=== PATIENT | female | born 1950 | race Caucasian/White ===

== ENCOUNTER 2017-10-23 05:49 | Inpatient (IN) ==
[2017-10-23] MEDS ORDERED: ceFAZolin 1,000 MG in SYRINGE 1 EACH IV ONE (06:00)
[2017-10-23] MEDS ORDERED: VANCOMYCIN INJ 1,000 MG in SODIUM CHLORIDE 0.9% 250 ML IV ONE (06:00)
[2017-10-23] MEDS ORDERED: VANCOMYCIN 1,000 MG VIAL ONE (06:30)
[2017-10-23] MEDS ORDERED: ceFAZolin 1,000 MG VIAL ONE (06:30)
[2017-10-23] MEDS ORDERED: BACITRACIN OINT 0.9 GM PACK TOP ONE (06:38)
[2017-10-23] MEDS: LACTATED RINGERS 1,000 ML IV SCH ×2 (06:40→15:01)
[2017-10-23] MEDS ORDERED: TRANEXAMIC ACID 1,000 MG/10 ML VIAL IV ONE (06:46)
[2017-10-23] MEDS ORDERED: ONDANSETRON 4 MG/2 ML VIAL IV PRN (07:16)
[2017-10-23] MEDS ORDERED: ZALEPLON 5 MG CAPSULE PO PRN (07:16)
[2017-10-23] MEDS ORDERED: MAGNESIUM HYDROXIDE SUSP 30 ML UDCUP PO PRN (07:16)
[2017-10-23] MEDS ORDERED: oxyCODONE IR 5 MG TABLET PO PRN (07:16)
[2017-10-23] MEDS ORDERED: MORPHINE 2 MG/1 ML SYRINGE IV PRN ×2 (07:16)
[2017-10-23] MEDS ORDERED: diphenhydrAMINE CAP 25 MG CAPSULE PO PRN (07:16)
[2017-10-23] MEDS ORDERED: ROPIVACAINE 0.5% 30 ML VIAL ONE (08:33)
[2017-10-23] MEDS ORDERED: PROPOFOL 200 MG/20 ML VIAL IV ONE (09:06)
[2017-10-23] MEDS ORDERED: SEVOFLURANE 1 UNIT/15 MINUTE INH ONE (09:06)
[2017-10-23] MEDS ORDERED: SCOPOLAMINE 1.5 MG PATCH TRANSDERM ONE (09:07)
[2017-10-23] MEDS ORDERED: MIDAZOLAM 2 MG/2 ML VIAL ONE (09:07)
[2017-10-23] MEDS ORDERED: PROMETHAZINE 25 MG/1 ML VIAL ONE (09:07)
[2017-10-23] MEDS ORDERED: DEXAMETHASONE 10 MG/1 ML VIAL ONE (09:07)
[2017-10-23] MEDS ORDERED: ePHEDrine 50 MG/ML AMP ONE (09:07)
[2017-10-23] MEDS ORDERED: LACTATED RINGERS 1,000 ML IV ONE (09:08)
[2017-10-23] MEDS ORDERED: ACETAMINOPHEN 1,000 MG/100 ML VIAL IV ONE (09:08)
[2017-10-23] MEDS ORDERED: PHENYLEPHRINE 1 MG/10 ML SYRINGE IV ONE (09:08)
[2017-10-23] MEDS ORDERED: ONDANSETRON 4 MG/2 ML VIAL ONE (09:08)
[2017-10-23] MEDS ORDERED: SODIUM CHLORIDE 0.9% 100 ML IV ONE (09:08)
[2017-10-23] MEDS: DOCUSATE SODIUM 100 MG CAPSULE PO SCH ×2 (10:20→21:42)
[2017-10-23] MEDS: BRIMONIDINE/TIMOLOL OPH SOLN 5 ML BOTTLE BOTH EYES SCH ×2 (10:20→21:41)
[2017-10-23] MEDS: KETOROLAC 30 MG/1 ML VIAL IV SCH ×3 (10:25→23:04)
[2017-10-23] MEDS: ESCITALOPRAM 10 MG TABLET PO SCH (11:07)
[2017-10-23] MEDS: ACETAMINOPHEN 500 MG TABLET PO SCH ×3 (11:16→23:04)
[2017-10-23] MEDS: ceFAZolin 1,000 MG in SYRINGE 1 EACH IV SCH ×2 (11:18→19:52)
[2017-10-23] MEDS: SODIUM BICARBONATE 650 MG TABLET PO SCH ×2 (15:00→21:41)
[2017-10-23] MEDS ORDERED: AMOXAPINE 50 MG PO SCH (21:00)
[2017-10-23] MEDS: LATANOPROST 0.005% OPH SOLN 2.5 ML BOTTLE BOTH EYES SCH (21:41)
[2017-10-23] MEDS: POTASSIUM CHLORIDE 10 MEQ TABLET PO SCH (21:41)
[2017-10-23] MEDS: NORTRIPTYLINE 25 MG CAPSULE PO SCH (21:42)
[2017-10-24] MEDS: LACTATED RINGERS 1,000 ML IV SCH ×3 (00:38→06:31)
[2017-10-24] MEDS: FONDAPARINUX 2.5 MG/0.5 ML SYRINGE SUBCUT SCH (00:38)
[2017-10-24] MEDS: oxyCODONE IR 5 MG TABLET PO PRN ×2 (00:38→17:01)
[2017-10-24] MEDS: KETOROLAC 30 MG/1 ML VIAL IV SCH (05:24)
[2017-10-24] MEDS: ACETAMINOPHEN 500 MG TABLET PO SCH (05:24)
[2017-10-24] MEDS ORDERED: KETOROLAC 30 MG/1 ML VIAL IV SCH (05:30)
[2017-10-24 07:11] LABS: Basophils % 0.1 % (0.0-0.8); Eosinophils % 0.4 % (0.00-10.9); Hematocrit 22.7 VOL% (35.7-47.0); Hemoglobin 7.7 GM/DL (12.0-16.0); Immature Granulocytes % 0.4 %; Immature Granulocytes Absolute 0.04 #; Lymphocytes # 2.2 10*3/uL (1.4-4.0); Lymphocytes % 24.8 % (21.3-54.2); Mean Corpuscular HGB Conc 33.9 GM/DL (32-36); Mean Corpuscular Hemoglobin 28 PG (27-34); Mean Corpuscular Volume 81.9 FL (87-102); Mean Platelet Volume 10.8 FL (9.6-12.0); Monocytes # 1.1 10*3/uL (0.11-0.8); Neutrophils # 5.6 10*3/uL (1.4-7.4); Neutrophils % 62.3 % (38.7-73.9); Platelet Count 417 T/CUMM (130-400); Red Blood Count 2.77 MC/CUMM (3.8-5.5); Red Cell Distribution Width 13.2 % (9.3-17.3)
[2017-10-24 07:36] LABS: Calcium 8.2 MG/DL (8.5-10.1); Osmolality,Calculated 262.5 MOS/KG (273-304); Potassium 4.6 MMOL/L (3.5-5.1)
[2017-10-24] MEDS: BRIMONIDINE/TIMOLOL OPH SOLN 5 ML BOTTLE BOTH EYES SCH ×2 (09:16→21:39)
[2017-10-24] MEDS: DOCUSATE SODIUM 100 MG CAPSULE PO SCH ×2 (09:17→21:40)
[2017-10-24] MEDS: TRIAMTERENE/HCTZ 37.5-25 MG CAPSULE PO SCH (09:17)
[2017-10-24] MEDS: METOPROLOL SUCCINATE XL 25 MG TABLET PO SCH (09:17)
[2017-10-24] MEDS: ESCITALOPRAM 10 MG TABLET PO SCH (09:17)
[2017-10-24] MEDS: POTASSIUM CHLORIDE 10 MEQ TABLET PO SCH ×2 (09:17→21:39)
[2017-10-24] MEDS: SODIUM BICARBONATE 650 MG TABLET PO SCH ×3 (09:17→21:39)
[2017-10-24] MEDS: CELECOXIB 200 MG CAPSULE PO SCH (12:55)
[2017-10-24] MEDS: LATANOPROST 0.005% OPH SOLN 2.5 ML BOTTLE BOTH EYES SCH (21:39)
[2017-10-24] MEDS: NORTRIPTYLINE 25 MG CAPSULE PO SCH (21:39)
[2017-10-25] MEDS: FONDAPARINUX 2.5 MG/0.5 ML SYRINGE SUBCUT SCH (00:38)
[2017-10-25 06:27] LABS: Basophils # 0.1 10*3/uL (0.0-0.2); Basophils % 0.5 % (0.0-0.8); Eosinophils # 0.4 10*3/uL (0.0-0.87); Eosinophils % 4.4 % (0.00-10.9); Hematocrit 22.4 VOL% (35.7-47.0); Hemoglobin 7.1 GM/DL (12.0-16.0); Immature Granulocytes % 0.4 %; Immature Granulocytes Absolute 0.04 #; Lymphocytes % 20.5 % (21.3-54.2); Mean Corpuscular HGB Conc 31.7 GM/DL (32-36); Mean Corpuscular Hemoglobin 27 PG (27-34); Mean Corpuscular Volume 84.2 FL (87-102); Mean Platelet Volume 9.7 FL (9.6-12.0); Monocytes # 1.2 10*3/uL (0.11-0.8); Neutrophils # 5.8 10*3/uL (1.4-7.4); Neutrophils % 61.2 % (38.7-73.9); Platelet Count 389 T/CUMM (130-400); Red Blood Count 2.66 MC/CUMM (3.8-5.5); Red Cell Distribution Width 13.6 % (9.3-17.3); White Blood Count 9.5 T/CUMM (4-12)
[2017-10-25 06:57] LABS: Calcium 8.1 MG/DL (8.5-10.1); Osmolality,Calculated 262.7 MOS/KG (273-304); Potassium 4.4 MMOL/L (3.5-5.1)
[2017-10-25] MEDS ORDERED: IRON (CARBONYL) 45 MG TABLET PO SCH (09:00)
[2017-10-25] MEDS: CELECOXIB 200 MG CAPSULE PO SCH (09:20)
[2017-10-25] MEDS: POTASSIUM CHLORIDE 10 MEQ TABLET PO SCH (09:21)
[2017-10-25] MEDS: SODIUM BICARBONATE 650 MG TABLET PO SCH (09:21)
[2017-10-25] MEDS: DOCUSATE SODIUM 100 MG CAPSULE PO SCH (09:21)
[2017-10-25] MEDS: METOPROLOL SUCCINATE XL 25 MG TABLET PO SCH (09:22)
[2017-10-25] MEDS: ESCITALOPRAM 10 MG TABLET PO SCH (09:22)
[2017-10-25] MEDS: TRIAMTERENE/HCTZ 37.5-25 MG CAPSULE PO SCH (09:22)
[2017-10-25] MEDS: BRIMONIDINE/TIMOLOL OPH SOLN 5 ML BOTTLE BOTH EYES SCH (09:23)
[2017-10-25 10:51] VITALS: BP 105/52
== END 2017-10-25 12:00 | disposition home health service (06) | DRG 470 ==
LOC: N.SDSINP 05:49 → N.3E 08:35
PROVIDERS: ADMIT Orthopaedic Surgery; ATTEND Orthopaedic Surgery

== ENCOUNTER 2018-04-25 04:17 | Inpatient (IN) ==
[2018-04-25 05:47] LABS: Basophils # 0.1 10*3/uL (0.0-0.2); Basophils % 0.3 % (0.0-0.8); Eosinophils # 0.1 10*3/uL (0.0-0.87); Eosinophils % 0.2 % (0.00-10.9); Hemoglobin 13.3 GM/DL (12.0-16.0); Immature Granulocytes % 0.8 %; Immature Granulocytes Absolute 0.17 #; Lymphocytes # 1.6 10*3/uL (1.4-4.0); Lymphocytes % 7.7 % (21.3-54.2); Mean Corpuscular Hemoglobin 30 PG (27-34); Mean Corpuscular Volume 85.4 FL (87-102); Mean Platelet Volume 10.6 FL (9.6-12.0); Monocytes # 1.9 10*3/uL (0.11-0.8); Monocytes % 9.3 % (1.7-12.7); Neutrophils # 16.8 10*3/uL (1.4-7.4); Neutrophils % 81.7 % (38.7-73.9); Platelet Count 545 T/CUMM (130-400); Red Blood Count 4.45 MC/CUMM (3.8-5.5); Red Cell Distribution Width 14.8 % (9.3-17.3); White Blood Count 20.6 T/CUMM (4-12)
[2018-04-25 06:10] LABS: Band Neutrophils 2 % (0-10); Eosinophils 1 % (0-10); Lymphocytes 11 % (20-55); Segmented Neutrophils 82 % (50-85); Total Cells Counted 100
[2018-04-25 06:11] LABS: Microcytosis 1+; Ovalocytes Slight
[2018-04-25 06:12] LABS: Platelet Estimate Increased
[2018-04-25 06:13] LABS: Alanine Aminotransferase 38 U/L (13-56); Alkaline Phosphatase 156 U/L (45-117); Aspartate Amino Transferase 35 U/L (0-37); Blood Urea Nitrogen 18 MG/DL (7-18); Calcium 9.2 MG/DL (8.5-10.1); Glucose 211 MG/DL (74-106); Osmolality,Calculated 269.7 MOS/KG (273-304); Potassium 2.7 MMOL/L (3.5-5.1); Sodium 131 MMOL/L (136-145); Total Protein 8.1 G/DL (6.4-8.3)
[2018-04-25 06:15] LABS: Lactic Acid 4.8 MMOL/L (0.4-2.0)
[2018-04-25 07:10] LABS: Apearance,Urine CLEAR (Clear); Bilirubin,Urine Negative (Negative); Blood, Urine Negative (Negative); Glucose,Urine (UA) Negative (Negative); Hyaline Casts,Urine 2 /LPF (0-3); Ketones,Urine Negative (Negative); Mucus,Urine Occasional /LPF (Occasional); Nitrite,Urine Negative (Negative); Protein,Urine Negative; Squamous Epithelial Cell,Urine Occasional /HPF (0-10); Urine Color Yellow (Yellow); Urine Specific Gravity 1.009 (1.001-1.035); Urine Urobilinogen < 2.0 EU/DL (0.2-1.0); WBC,Urine 5 /HPF (0-6)
[2018-04-25 09:26] LABS: Basophils % 0.2 % (0.0-0.8); Eosinophils % 0.1 % (0.00-10.9); Hematocrit 31.4 VOL% (35.7-47.0); Immature Granulocytes % 0.5 %; Immature Granulocytes Absolute 0.09 #; Lymphocytes # 1.2 10*3/uL (1.4-4.0); Lymphocytes % 7.2 % (21.3-54.2); Mean Corpuscular HGB Conc 34.7 GM/DL (32-36); Mean Corpuscular Hemoglobin 30 PG (27-34); Mean Platelet Volume 10.1 FL (9.6-12.0); Monocytes # 1.7 10*3/uL (0.11-0.8); Monocytes % 10.5 % (1.7-12.7); Neutrophils # 13.4 10*3/uL (1.4-7.4); Neutrophils % 81.5 % (38.7-73.9); Red Blood Count 3.65 MC/CUMM (3.8-5.5); Red Cell Distribution Width 14.7 % (9.3-17.3); White Blood Count 16.5 T/CUMM (4-12)
[2018-04-25 09:30] LABS: Hemoglobin 10.9 GM/DL (12.0-16.0); Platelet Count 411 T/CUMM (130-400)
[2018-04-25 09:39] LABS: Calcium 8.1 MG/DL (8.5-10.1); Osmolality,Calculated 273.1 MOS/KG (273-304); Potassium 2.8 MMOL/L (3.5-5.1)
[2018-04-25 14:47] LABS: Apearance,Urine CLEAR (Clear); Bilirubin,Urine Negative (Negative); Blood, Urine Negative (Negative); Glucose,Urine (UA) Negative (Negative); Hyaline Casts,Urine 1 /LPF (0-3); Ketones,Urine Negative (Negative); Nitrite,Urine Negative (Negative); Protein,Urine Negative; RBC,Urine 2 /HPF (0-4); Urine Color Straw (Yellow); Urine Specific Gravity 1.009 (1.001-1.035); Urine Urobilinogen < 2.0 EU/DL (0.2-1.0); WBC,Urine 2 /HPF (0-6)
[2018-04-25 18:52] LABS: Lactic Acid 0.9 MMOL/L (0.4-2.0)
[2018-04-25 18:54] LABS: Potassium 2.9 MMOL/L (3.5-5.1)
[2018-04-26 05:07] LABS: Basophils # 0.1 10*3/uL (0.0-0.2); Basophils % 0.5 % (0.0-0.8); Eosinophils # 0.2 10*3/uL (0.0-0.87); Eosinophils % 2.2 % (0.00-10.9); Hematocrit 27.6 VOL% (35.7-47.0); Hemoglobin 9.4 GM/DL (12.0-16.0); Immature Granulocytes % 0.7 %; Immature Granulocytes Absolute 0.07 #; Lymphocytes # 1.5 10*3/uL (1.4-4.0); Lymphocytes % 14.3 % (21.3-54.2); Mean Corpuscular HGB Conc 34.1 GM/DL (32-36); Mean Corpuscular Hemoglobin 30 PG (27-34); Mean Corpuscular Volume 88.2 FL (87-102); Mean Platelet Volume 10.6 FL (9.6-12.0); Monocytes % 10.2 % (1.7-12.7); Neutrophils # 7.3 10*3/uL (1.4-7.4); Neutrophils % 72.1 % (38.7-73.9); Platelet Count 353 T/CUMM (130-400); Red Blood Count 3.13 MC/CUMM (3.8-5.5); Red Cell Distribution Width 15.2 % (9.3-17.3); White Blood Count 10.1 T/CUMM (4-12)
[2018-04-26 05:33] LABS: Osmolality,Calculated 270.8 MOS/KG (273-304); Potassium 2.7 MMOL/L (3.5-5.1)
[2018-04-27 04:35] LABS: Basophils # 0.1 10*3/uL (0.0-0.2); Basophils % 0.6 % (0.0-0.8); Eosinophils # 0.4 10*3/uL (0.0-0.87); Eosinophils % 4.5 % (0.00-10.9); Hematocrit 26.4 VOL% (35.7-47.0); Hemoglobin 8.9 GM/DL (12.0-16.0); Immature Granulocytes % 0.7 %; Immature Granulocytes Absolute 0.06 #; Lymphocytes # 1.9 10*3/uL (1.4-4.0); Lymphocytes % 23.7 % (21.3-54.2); Mean Corpuscular HGB Conc 33.7 GM/DL (32-36); Mean Corpuscular Hemoglobin 30 PG (27-34); Mean Corpuscular Volume 89.2 FL (87-102); Mean Platelet Volume 10.4 FL (9.6-12.0); Monocytes # 0.8 10*3/uL (0.11-0.8); Monocytes % 10.3 % (1.7-12.7); Neutrophils # 4.8 10*3/uL (1.4-7.4); Neutrophils % 60.2 % (38.7-73.9); Platelet Count 344 T/CUMM (130-400); Red Blood Count 2.96 MC/CUMM (3.8-5.5); Red Cell Distribution Width 15.7 % (9.3-17.3)
[2018-04-27 04:57] LABS: Albumin 2.5 G/DL (3.4-5.0); Bilirubin,Total 0.6 MG/DL (0.2-1.0); Calcium 7.6 MG/DL (8.5-10.1); Osmolality,Calculated 271.7 MOS/KG (273-304); Potassium 4.1 MMOL/L (3.5-5.1); Total Protein 5.1 G/DL (6.4-8.3)
[2018-04-28 06:11] LABS: Basophils % 0.2 % (0.0-0.8); Eosinophils % 0.2 % (0.00-10.9); Hematocrit 27.9 VOL% (35.7-47.0); Hemoglobin 9.4 GM/DL (12.0-16.0); Immature Granulocytes % 0.7 %; Immature Granulocytes Absolute 0.09 #; Lymphocytes # 2.5 10*3/uL (1.4-4.0); Lymphocytes % 19.9 % (21.3-54.2); Mean Corpuscular HGB Conc 33.7 GM/DL (32-36); Mean Corpuscular Hemoglobin 30 PG (27-34); Mean Platelet Volume 10.5 FL (9.6-12.0); Monocytes # 1.3 10*3/uL (0.11-0.8); Monocytes % 10.2 % (1.7-12.7); Neutrophils # 8.5 10*3/uL (1.4-7.4); Neutrophils % 68.8 % (38.7-73.9); Platelet Count 388 T/CUMM (130-400); Red Blood Count 3.17 MC/CUMM (3.8-5.5); Red Cell Distribution Width 15.6 % (9.3-17.3); White Blood Count 12.4 T/CUMM (4-12)
[2018-04-28 06:43] LABS: Albumin 2.7 G/DL (3.4-5.0); Bilirubin,Total 0.6 MG/DL (0.2-1.0); Calcium 8.4 MG/DL (8.5-10.1); Osmolality,Calculated 262.4 MOS/KG (273-304); Potassium 3.8 MMOL/L (3.5-5.1)
[2018-04-29 04:56] LABS: Basophils % 0.4 % (0.0-0.8); Eosinophils # 0.3 10*3/uL (0.0-0.87); Eosinophils % 2.9 % (0.00-10.9); Hematocrit 28.4 VOL% (35.7-47.0); Hemoglobin 9.7 GM/DL (12.0-16.0); Immature Granulocytes % 0.6 %; Immature Granulocytes Absolute 0.06 #; Lymphocytes # 2.4 10*3/uL (1.4-4.0); Lymphocytes % 25.8 % (21.3-54.2); Mean Corpuscular HGB Conc 34.2 GM/DL (32-36); Mean Corpuscular Hemoglobin 30 PG (27-34); Mean Corpuscular Volume 86.6 FL (87-102); Mean Platelet Volume 10.5 FL (9.6-12.0); Monocytes # 0.9 10*3/uL (0.11-0.8); Neutrophils # 5.6 10*3/uL (1.4-7.4); Neutrophils % 60.3 % (38.7-73.9); Platelet Count 376 T/CUMM (130-400); Red Blood Count 3.28 MC/CUMM (3.8-5.5); Red Cell Distribution Width 15.8 % (9.3-17.3); White Blood Count 9.3 T/CUMM (4-12)
[2018-04-29 05:30] LABS: Calcium 8.4 MG/DL (8.5-10.1); Osmolality,Calculated 265.1 MOS/KG (273-304); Potassium 3.5 MMOL/L (3.5-5.1)
[2018-04-29 05:32] LABS: Alanine Aminotransferase 17 U/L (13-56); Albumin 2.9 G/DL (3.4-5.0); Alkaline Phosphatase 96 U/L (45-117); Aspartate Amino Transferase 16 U/L (0-37); Bilirubin,Direct < 0.100 MG/DL (0.0-0.20); Total Protein 5.9 G/DL (6.4-8.3)
[2018-04-30 10:32] VITALS: BP 130/75
== END 2018-04-30 10:15 | disposition home or self-care (01) | DRG 330 ==
LOC: N.ED 04:17 → N.SDSINP 07:40 → N.ICU 13:48 → N.3E 04-27 16:11
PROVIDERS: ADMIT Surgery; ATTEND Surgery

== ENCOUNTER 2020-10-08 11:05 | Observation (INO) ==
[2020-10-08] MEDS ORDERED: SODIUM CHLORIDE 0.9% 1,000 ML IV STA (11:42)
[2020-10-08 12:15] LABS: Basophils # 0.1 10*3/uL (0.0-0.2); Basophils % 0.9 % (0.0-0.8); Eosinophils # 0.1 10*3/uL (0.0-0.87); Eosinophils % 1.5 % (0.00-10.9); Hematocrit 44.3 VOL% (35.7-47.0); Hemoglobin 16.1 GM/DL (12.0-16.0); Immature Granulocytes % 0.7 %; Immature Granulocytes Absolute 0.05 #; Lymphocytes # 1.3 10*3/uL (1.4-4.0); Lymphocytes % 17.9 % (21.3-54.2); Mean Corpuscular HGB Conc 36.3 GM/DL (32-36); Mean Corpuscular Volume 82.3 FL (87-102); Mean Platelet Volume 10.2 FL (9.6-12.0); Platelet Count 516 T/CUMM (130-400); Red Blood Count 5.38 MC/CUMM (3.8-5.5); White Blood Count 7.5 T/CUMM (4-12)
[2020-10-08 12:44] LABS: Albumin 4.1 G/DL (3.4-5.0); Bilirubin,Total 0.7 MG/DL (0.2-1.0); Calcium 10.3 MG/DL (8.5-10.1); Osmolality,Calculated 251.6 MOS/KG (273-304); Potassium 3.9 MMOL/L (3.5-5.1); Total Protein 8.1 G/DL (6.4-8.3)
[2020-10-08 12:50] LABS: Bilirubin,Urine Negative (Negative); Blood, Urine Negative (Negative); Glucose,Urine (UA) Negative (Negative); Ketones,Urine Negative (Negative); Mucus,Urine Occasional /LPF (Occasional); Nitrite,Urine Negative (Negative); Protein,Urine Negative; Urine Appearance CLEAR (Clear); Urine Color Yellow (Yellow); Urine Specific Gravity 1.012 (1.001-1.035); Urine Urobilinogen < 2.0 EU/DL (0.2-1.0); WBC,Urine <1 /HPF (0-6)
[2020-10-08] MEDS ORDERED: KETOROLAC 30 MG/1 ML VIAL IV STA (13:07)
[2020-10-08] MEDS ORDERED: SODIUM CHLORIDE 0.9% 1,000 ML IV SCH (15:15)
[2020-10-08] MEDS ORDERED: ONDANSETRON 4 MG/2 ML VIAL IV PRN (15:15)
[2020-10-08] MEDS ORDERED: ACETAMINOPHEN 325 MG TABLET PO PRN (15:15)
[2020-10-08] MEDS ORDERED: ZALEPLON 5 MG CAPSULE PO PRN (20:34)
[2020-10-08] MEDS ORDERED: CARBOXYMETHYLCELLULOSE 1% OPH SOLN BOTH EYES PRN (20:34)
[2020-10-08] MEDS ORDERED: MINERAL OIL/PETROLATUM OPH OINT 3.5 GM TUBE BOTH EYES PRN (20:34)
[2020-10-08] MEDS ORDERED: POLYVINYL ALCOHOL 1.4% OPH SOLN 15 ML BOTTLE BOTH EYES PRN (20:34)
[2020-10-08] MEDS: POLYETHYLENE GLYCOL POWDER 17 GM PACK PO PRN (20:37)
[2020-10-08] MEDS: DOCUSATE SODIUM 100 MG CAPSULE PO SCH (20:37)
[2020-10-08] MEDS: MAGNESIUM SULF IV SCH (21:14)
[2020-10-08] MEDS: POTASSIUM CHLORIDE IV SCH (21:14)
[2020-10-08] MEDS: SODIUM CHLORIDE 0.9% IV SCH (21:14)
[2020-10-08] MEDS: LATANOPROST 0.005% OPH SOLN 2.5 ML BOTTLE BOTH EYES SCH (21:19)
[2020-10-08] MEDS: SODIUM BICARBONATE 650 MG TABLET PO SCH (21:19)
[2020-10-08] MEDS: BRINZOLAMIDE 1% OPH SUSP 10 ML BOTTLE BOTH EYES SCH (21:19)
[2020-10-08] MEDS: BRIMONIDINE/TIMOLOL OPH SOLN 5 ML BOTTLE BOTH EYES SCH (21:19)
[2020-10-09] MEDS: POTASSIUM CHLORIDE IV SCH (05:29)
[2020-10-09] MEDS: SODIUM CHLORIDE 0.9% IV SCH (05:29)
[2020-10-09] MEDS: MAGNESIUM SULF IV SCH (05:29)
[2020-10-09 06:08] LABS: Basophils # 0.1 10*3/uL (0.0-0.2); Basophils % 0.8 % (0.0-0.8); Eosinophils # 0.1 10*3/uL (0.0-0.87); Hematocrit 38.2 VOL% (35.7-47.0); Immature Granulocytes % 0.4 %; Immature Granulocytes Absolute 0.03 #; Lymphocytes # 1.7 10*3/uL (1.4-4.0); Mean Corpuscular HGB Conc 34.6 GM/DL (32-36); Mean Corpuscular Volume 86.6 FL (87-102); Mean Platelet Volume 10.3 FL (9.6-12.0); Monocytes % 15.2 % (1.7-12.7); Neutrophils % 57.6 % (38.7-73.9); Red Blood Count 4.41 MC/CUMM (3.8-5.5); Red Cell Distribution Width 13.2 % (9.3-17.3); White Blood Count 7.1 T/CUMM (4-12)
[2020-10-09 06:10] LABS: Hemoglobin 13.2 GM/DL (12.0-16.0); Platelet Count 408 T/CUMM (130-400)
[2020-10-09 06:15] LABS: Platelet Estimate Adequate
[2020-10-09 06:27] LABS: Albumin 3.1 G/DL (3.4-5.0); Bilirubin,Total 0.6 MG/DL (0.2-1.0); Calcium 8.6 MG/DL (8.5-10.1); Free T4 (Free Thyroxine) 1.26 NG/DL (0.76-1.46); Osmolality,Calculated 262.5 MOS/KG (273-304); Potassium 3.7 MMOL/L (3.5-5.1); Thyroid Stimulating Hormone 2.72 uIU/ml (0.358-3.74); Total Protein 6.5 G/DL (6.4-8.3)
[2020-10-09] MEDS ORDERED: POTASSIUM CHLORIDE INJ 20 MEQ in SODIUM CHLORIDE 0.9% 1,000 ML IV SCH (08:30)
[2020-10-09] MEDS: PANTOPRAZOLE 40 MG TABLET PO SCH (10:06)
[2020-10-09] MEDS: TRIAMTERENE/HCTZ 37.5-25 MG CAPSULE PO SCH (10:06)
[2020-10-09] MEDS: DOCUSATE SODIUM 100 MG CAPSULE PO SCH ×2 (10:06→21:39)
[2020-10-09] MEDS: CETIRIZINE 10 MG TABLET PO SCH (10:06)
[2020-10-09] MEDS: SODIUM BICARBONATE 650 MG TABLET PO SCH ×3 (10:06→21:39)
[2020-10-09] MEDS: METOPROLOL SUCCINATE XL 25 MG TABLET PO SCH (10:06)
[2020-10-09] MEDS: CHOLECALCIFEROL 1,000 UNIT TABLET PO SCH (10:07)
[2020-10-09] MEDS: buPROPion XL 150 MG TABLET PO SCH (10:07)
[2020-10-09] MEDS: DICLOFENAC SODIUM 50 MG TABLET PO SCH (10:07)
[2020-10-09] MEDS: POLYVINYL ALCOHOL 1.4% OPH SOLN 15 ML BOTTLE BOTH EYES SCH (10:12)
[2020-10-09] MEDS: BRIMONIDINE/TIMOLOL OPH SOLN 5 ML BOTTLE BOTH EYES SCH ×2 (10:12→21:44)
[2020-10-09] MEDS: BRINZOLAMIDE 1% OPH SUSP 10 ML BOTTLE BOTH EYES SCH ×3 (10:12→21:40)
[2020-10-09] MEDS: SODIUM CHLOR 0.9% KCL 20 MEQ 20 MEQ/1,000 ML BAG IV SCH ×2 (10:45→21:44)
[2020-10-09] MEDS: ESTRADIOL VALERATE IM 100 MG/5 ML VIAL IM ONE ×2 (10:47→12:35)
[2020-10-09] MEDS ORDERED: ESTRADIOL VALERATE IM 100 MG/5 ML VIAL IM ONE (11:00)
[2020-10-09] MEDS: POLYETHYLENE GLYCOL POWDER 17 GM PACK PO PRN (14:50)
[2020-10-09] MEDS: ALGAL OIL PO SCH ×2 (16:10→21:42)
[2020-10-09] MEDS: LEVOMEFOLATE PO SCH ×2 (16:10→21:42)
[2020-10-09] MEDS: [UNRECOGNIZED DRUG - OTHER] PO SCH ×2 (16:10→21:42)
[2020-10-09] MEDS: LATANOPROST 0.005% OPH SOLN 2.5 ML BOTTLE BOTH EYES SCH (21:40)
[2020-10-10] MEDS: POLYETHYLENE GLYCOL POWDER 17 GM PACK PO PRN (00:23)
[2020-10-10 06:08] LABS: Basophils # 0.1 10*3/uL (0.0-0.2); Basophils % 0.8 % (0.0-0.8); Eosinophils # 0.2 10*3/uL (0.0-0.87); Eosinophils % 2.9 % (0.00-10.9); Hematocrit 37.5 VOL% (35.7-47.0); Hemoglobin 12.9 GM/DL (12.0-16.0); Immature Granulocytes % 0.2 %; Immature Granulocytes Absolute 0.02 #; Lymphocytes # 2.6 10*3/uL (1.4-4.0); Lymphocytes % 30.9 % (21.3-54.2); Mean Corpuscular HGB Conc 34.4 GM/DL (32-36); Mean Corpuscular Volume 86.8 FL (87-102); Mean Platelet Volume 10.6 FL (9.6-12.0); Monocytes % 11.8 % (1.7-12.7); Neutrophils % 53.4 % (38.7-73.9); Platelet Count 385 T/CUMM (130-400); Red Blood Count 4.32 MC/CUMM (3.8-5.5); Red Cell Distribution Width 13.3 % (9.3-17.3); White Blood Count 8.3 T/CUMM (4-12)
[2020-10-10] MEDS: SODIUM CHLOR 0.9% KCL 20 MEQ 20 MEQ/1,000 ML BAG IV SCH (06:11)
[2020-10-10 06:27] LABS: Calcium 8.7 MG/DL (8.5-10.1); Osmolality,Calculated 265.2 MOS/KG (273-304); Potassium 3.8 MMOL/L (3.5-5.1)
[2020-10-10 07:47] VITALS: BP 119/77
[2020-10-10] MEDS: CHOLECALCIFEROL 1,000 UNIT TABLET PO SCH (09:35)
[2020-10-10] MEDS: SODIUM BICARBONATE 650 MG TABLET PO SCH (09:35)
[2020-10-10] MEDS: TRIAMTERENE/HCTZ 37.5-25 MG CAPSULE PO SCH (09:35)
[2020-10-10] MEDS: POLYVINYL ALCOHOL 1.4% OPH SOLN 15 ML BOTTLE BOTH EYES SCH (09:36)
[2020-10-10] MEDS: buPROPion XL 150 MG TABLET PO SCH (09:36)
[2020-10-10] MEDS: BRIMONIDINE/TIMOLOL OPH SOLN 5 ML BOTTLE BOTH EYES SCH (09:36)
[2020-10-10] MEDS: DOCUSATE SODIUM 100 MG CAPSULE PO SCH (09:36)
[2020-10-10] MEDS: PANTOPRAZOLE 40 MG TABLET PO SCH (09:36)
[2020-10-10] MEDS: METOPROLOL SUCCINATE XL 25 MG TABLET PO SCH (09:36)
[2020-10-10] MEDS: CETIRIZINE 10 MG TABLET PO SCH (09:36)
[2020-10-10] MEDS: BRINZOLAMIDE 1% OPH SUSP 10 ML BOTTLE BOTH EYES SCH (09:36)
[2020-10-10] MEDS: ALGAL OIL PO SCH (09:37)
[2020-10-10] MEDS: [UNRECOGNIZED DRUG - OTHER] PO SCH (09:37)
[2020-10-10] MEDS: LEVOMEFOLATE PO SCH (09:37)
[2020-10-10] MEDS: DICLOFENAC SODIUM 50 MG TABLET PO SCH (09:37)
== END 2020-10-10 11:50 | disposition home or self-care (01) ==
LOC: N.ED 11:05 → N.5E 11:05
PROVIDERS: ADMIT Family Medicine; ATTEND Family Medicine